=== PATIENT | female | born 1950 | race Caucasian/White ===

== ENCOUNTER 2022-11-04 11:11 | Outpatient (CLI) | payer MEDICARE, SELFPAY | END 2022-11-04 11:12 | disposition home or self-care (01) | LOC: OP CLINIC 11:12 | PROVIDERS: PCP Family Medicine; Visit Provider Surgery | DX: Z12.11 Encounter for screening for malignant neoplasm of colon (principal); K63.5 Polyp of colon; K57.30 Diverticulosis of large intestine without perforation or abscess without bleeding; K64.9 Unspecified hemorrhoids | CPT/HCPCS: 45385; 88305; 99153; J2250; J3010 ==